=== PATIENT | male | born 1980 | race Two or more races ===

== ENCOUNTER 2024-04-14 18:35 | Emergency (ER) | payer BC ==
[~2024-04-14] VITALS: Ht 172.7 cm; Wt 73.9 kg
[2024-04-14 18:36] VITALS: BP 177/100; TEMP 97.8; O2SAT 100
[2024-04-14] MEDS: IBUPROFEN 600MG TAB PO ONE (20:28)
[2024-04-14] MEDS: ACETAMINOPHEN 325 MG TAB PO ONE (20:28)
== END 2024-04-14 20:33 | disposition home or self-care (01) ==
LOC: M ED 18:35
DX: S56.911A Strain of unspecified muscles, fascia and tendons at forearm level, right arm, initial encounter (principal); X50.0XXA Overexertion from strenuous movement or load, initial encounter; Y92.9 Unspecified place or not applicable; Y93.9 Activity, unspecified; Y99.0 Civilian activity done for income or pay